=== PATIENT | male | born 2000 | race Two or more races ===

== ENCOUNTER 2024-12-14 15:33 | Emergency (ER) | payer MEDICAID, SELFPAY ==
[2024-12-14 15:34] VITALS: BMI 34.4
--- NOTE | 2024-12-14 15:57 | EKG_ITS ---
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
--- NOTE | 2024-12-14 16:06 | PD.EDRME ---
Rapid Medical Screening Exam RME Arrival date/time: 12/14/24 15:33 24-year-old male with no known medical history presents to the emergency room with a chief complaint of dizziness and lightheadedness that occurred 2 hours ago. I have greeted and performed a focused initial assessment of this patient. A comprehensive ED assessment and evaluation of the patient, analysis of all test results, and completion of the medical decision making process will be conducted by additional ED providers. Chief Complaint: Dizziness Time Seen by Provider: 12/14/24 16:00 Vital signs reviewed by provider: Yes
[2024-12-14 16:12] VITALS: BP 142/85; PULSE 68; RESP 16; TEMP 36.9; O2SAT 99
[2024-12-14 16:33] LABS: Basophils # (Auto) 0.1 Thou/mm3 (0.0-0.2); Basophils % (Auto) 0 % (0-2.5); Eosinophils # (Auto) 0.0 Thou/mm3 (0.0-0.5); Eosinophils % (Auto) 0 % (0-10); Hematocrit 45.3 % (41.0-53.0); Hemoglobin 13.9 g/dL (13.5-16.0); Immature Granulocytes Auto 0.07 Thou/mm3 (0.00-0.00); Lymphocytes # (Auto) 1.7 Thou/mm3 (1.0-4.8); Lymphocytes % (Auto) 8 % (10-50); Mean Corpuscular HGB Conc 30.7 g/dl (31.0-37.0); Mean Corpuscular Hemoglobin 25.6 pg (25.0-35.0); Mean Corpuscular Volume 83 fL (80-100); Monocytes # (Auto) 0.6 Thou/mm3 (0.0-0.8); Monocytes % (Auto) 3 % (0-12); Neutrophils # (Auto) 18.0 Thou/mm3 (1.8-7.7); Neutrophils % (Auto) 88 % (37-80); Nucleated Red Blood Cell # 0.00 Thou/mm3 (0.00-0.00); Nucleated Red Blood Cell % 0 /100 WBC (0); Platelet Count 352 Thou/mm3 (140-440); RDW Standard Deviation 41.6 fL (35.1-43.9); Red Blood Count 5.43 Miln/mm3 (4.50-5.90); White Blood Count 20.5 Thou/mm3 (3.8-10.6)
[2024-12-14 16:38] LABS: INR 1.0 (0.9-1.3); Partial Thromboplastin Time 27.6 Seconds (22.0-36.0); Prothrombin Time 11.1 Seconds (9.0-12.2)
[2024-12-14 16:48] LABS: B-Type Natriuretic Peptide < 20 pg/mL (0-100)
[2024-12-14 16:51] LABS: Alanine Aminotransferase 30 U/L (10-49); Albumin, Serum 5.2 gm/dL (3.5-5.0); Albumin/Globulin Ratio 1.8 (1.2-2.2); Alkaline Phosphatase 93 U/L (46-116); Anion Gap 15 (7-16); Aspartate Amino Transferase 20 U/L (0-34); BUN/Creatinine Ratio 8 Ratio (12-20); Bilirubin,Total 0.6 mg/dL (0.3-1.2); Blood Urea Nitrogen 6 mg/dL (9-23); Calcium 9.5 mg/dL (8.3-10.6); Calcium (Corrected) 9.5 mg/dL (8.5-10.1); Carbon Dioxide 24.3 mMol/L (20.0-31.0); Chloride 103 mMol/L (98-107); Creatinine (Component) 0.8 mg/dL (0.6-1.3); Estimated Creatinine Clearance 161.6 mL/min (>60); Globulin 2.9 gm/dL (2.3-3.5); Glucose 99 mg/dL (74-106); Magnesium 1.9 mg/dL (1.6-2.6); Osmolality,Calculated 280 (275-295); Potassium 3.5 mMol/L (3.4-5.1); Sodium 142 mMol/L (136-145); Total Protein 8.1 gm/dL (5.7-8.2); Troponin I < 0.002 ng/mL (0.0-0.045); eGFR > 60 See Note
[2024-12-14 16:57] LABS: Collection Type, Urine Clean Catch
[2024-12-14 17:08] LABS: Amphetamine/Methamp Scrn,U Negative (Negative); Bacteria,Urine Rare; Barbiturate Screen,Urine Negative (Negative); Benzodiazepines Screen,Urine Negative (Negative); Benzoylecgonine Screen, Ur Negative (Negative); Bilirubin,Urine Negative (Negative); Blood,Urine Negative (Negative); Clarity,Urine Clear (Clear/Hazy); Color,Urine Yellow (Lt Yel-Yel); Culture Indicated,Urine Not Indicated; Fentanyl Screen,Urine Negative (Negative); Glucose, Urine Negative (Negative); Ketones,Urine Negative (Negative); Leukocyte Esterase,Urine Negative (Negative); Nitrite,Urine Negative (Negative); Opiate Screen,Urine Negative (Negative); PH,Urine 7.5 (5.0-7.0); Protein,Urine 1+ (Neg - Trace); RBC,Urine 2 /hpf (0-3); Specific Gravity,Urine 1.030 (1.001-1.035); Squamous Epithelial Cell,Urine < 1 /hpf (0-5); THC Screen,Urine Negative (Negative); Urobilinogen,Urine 2.0 mg/dL (0.0-1.0); WBC,Urine 5 /hpf (0-5)
[2024-12-14] MEDS: MECLIZINE HCL 25 MG TABLET 50 MG PO (17:37)
--- NOTE | 2024-12-14 21:32 | PD.EDCHEST ---
ED Chest Pain RME/HPI General Chief Complaint: Dizziness Stated Complaint: DIZZINESS AND NAUSEA Time Seen by Provider: 12/14/24 16:00 Arrival date/time: 12/14/24 15:33 Limitations: no limitations RME / HPI RME / HPI narrative: 12/14/24 15:33 24-year-old male with no known medical history presents to the emergency room with a chief complaint of dizziness and lightheadedness that occurred 2 hours ago. I have greeted and performed a focused initial assessment of this patient. A comprehensive ED assessment and evaluation of the patient, analysis of all test results, and completion of the medical decision making process will be conducted by additional ED providers. Dr. Mcleod evaluation Patient is a 24-year-old male is in the emergency department concerns for chest pain and feeling lightheaded. Patient states that he recently returned from [place]. He works as a teacher. On Friday he felt nauseous then felt better on Friday and Friday. Then today had 1 episode of emesis that resolved on its own. Denies fevers, cough, runny nose, abdominal pain, dysuria, hematuria, melena, bloody stools, drugs, alcohol, smoking, penile discharge, history of sexually transmitted infections Related Data Previous Rx's ?Medication ?Instructions ?Recorded ondansetron 4 mg disintegrating 4 mg PO Q12H PRN nausea and 12/14/24 tablet vomiting 3 days #6 tabs Allergies Allergy/AdvReac Type Severity Reaction Status Date / Time No Known Allergies Allergy Verified 12/14/24 15:38 ED Exam General Limitations: Present no limitations General appearance: Present alert, in no apparent distress and appears intoxicated Head Head exam: Present atraumatic and normocephalic Eye Eye exam: Present normal appearance and PERRL ENT ENT exam: Present normal exam, normal oropharynx and mucous membranes moist Neck Neck exam: Present normal inspection, full ROM and trachea midline Chest Chest inspection: Present normal inspection and symmetric chest wall rise Respiratory Respiratory exam: Present normal lung sounds bilaterally; Absent respiratory distress Cardiovascular Cardiovascular exam: Present regular rate and normal rhythm Abdominal Exam Abdominal exam: Present soft; Absent distention or tenderness Extremities Exam Extremities exam: Present normal inspection and full ROM Neurological Exam Neurological exam: Present alert and other (No focal neurodeficit) Psychiatric Psychiatric exam: Present normal affect Course Quality Measures none Orders Category Date Time Status EKG (ED ONLY) *Do not use* NOW Care 12/14/24 15:57 Completed Encourage Fluid Intake NOW Care 12/14/24 21:41 Completed EKG (ED Only) Stat Exams 12/14/24 15:57 Draft B-Type Natriuretic Peptide Stat Lab 12/14/24 16:18 Completed CBC Stat Lab 12/14/24 16:18 Completed Comprehensive Metabolic Panel Stat Lab 12/14/24 16:18 Completed Drug Screen,Urine Stat Lab 12/14/24 16:31 Completed Magnesium Stat Lab 12/14/24 16:18 Completed Partial Thromboplastin Time Stat Lab 12/14/24 16:18 Completed Prothrombin Time with INR Stat Lab 12/14/24 16:18 Completed Troponin I Stat Lab 12/14/24 16:18 Completed Urinalysis, C/S if Indicated Stat Lab 12/14/24 16:31 Completed Meclizine HCl [Antivert] Med 12/14/24 17:09 Discontinued 50 mg PO X1 ONE Metoclopramide [Reglan] Med 12/14/24 21:41 Discontinued 5 mg PO X1 ONE Vital Signs Vital signs: Vital Signs Temperature 98.5 F 12/14/24 16:12 Pulse Rate 68 12/14/24 16:12 Respiratory Rate 16 12/14/24 16:12 Blood Pressure 142/85 H 12/14/24 16:12 Pulse Oximetry (%) 99 12/14/24 16:12 Oxygen Delivery Method Room Air 12/14/24 16:12 Chest Pain MDM Narrative MDM Narrative:: Patient is a 24-year-old male this in the emergency permit concerns for chest pain and feeling lightheaded. Vital signs and exam as listed. Concern for ACS arrhythmia electrolyte abnormality viral syndrome among others. Prior provider evaluated patient. Ordered labs EKG offered medication for symptom relief Labs with evidence of leukocytosis 20.5, left shift of 88%. Normal hematocrit, no acute metabolic derangements, drug screen negative, urinalysis without evidence of infection troponin not elevated. EKG performed today at 1613 notable for sinus rhythm, normal intervals, nonspecific T wave changes, not a cardiac alert. Patient not septic not bacteremic, symptoms almost completely resolved. Abdomen soft nondistended nontender, no lower extremity MIYA, no rashes, no evidence of respiratory distress, patient without photophobia no nuchal rigidity, less likely meningitis encephalitis. On reevaluation patient hemodynamically stable not in distress tolerating oral intake. Offered patient IV fluids however patient declined at this time. Will discharge home close return precautions follow-up with primary care doctor. Patient data External records reviewed:: None Clinical information provided by:: patient and family Social determinants that could affect healthcare access:: none Patient has the following chronic illnesses:: None How is presenting disease/condition affected by chronic disease/condition?: no chronic disease Evaluation data The following diagnostics were reviewed and interpreted by me:: lab results and EKG tracing(s) Lab and/or radiology exams considered but not ordered:: None Interpretation Summary: See [facility] Medications / Prescriptions Medications or Prescriptions considered but not ordered:: None Medication administrations:: Medication Administration History Discontinued Medications Meclizine HCl (Meclizine Hcl 25 Mg Tablet) 50 mg PO X1 ONE Stop: 12/14/24 17:10 Last Admin: 12/14/24 17:37 Dose: 50 mg Documented By: ALBERTO Metoclopramide HCl (Metoclopramide 5 Mg Tablet) 5 mg PO X1 ONE Stop: 12/14/24 21:42 Last Admin: 12/14/24 21:51 Dose: 5 mg Documented By: SM See above Consultations Consultation(s) initiated? (list below): No Diagnosis Chest Pain Differential Diagnosis: other Most likely diagnosis given after review of the tests above:: Dehydration, enteritis, vomiting Admission Indicated Admission indicated?: not indicated Admission Request Was there a request for admission?: No Disposition Plan Disposition Plan: Discharge Discharge Attestation Discharge Attestation: The patient and all family members were given an opportunity to ask questions and understood the discharge instructions. Discharge instructions specifically effects, indications for sooner follow up or return to the emergency department, and the expected course of current diagnosis. Patient condition: Stable Discharge Plan Plan Patient Disposition: HOME (Self Care) Prescriptions/Referrals Prescriptions/Med Rec: New ondansetron 4 mg tablet,disintegrating 4 mg PO Q12H PRN (Reason: nausea and vomiting) 3 Days Qty: 6 0RF Referrals: No Primary/Family,Physician [Primary Care Provider] - In 1 week Problem List Clinical Impression: Nausea & vomiting, Light-headed Patient/Caregiver Discharge Instructions Education Materials: ED Diet for Vomiting or ... Print Language: Persian Stand Alone Forms: [employer] Award Info., Work/School Release, Patient Portal Info Letter
[2024-12-14] MEDS: METOCLOPRAMIDE 5 MG TABLET PO (21:51)
== END 2024-12-14 21:56 | disposition home or self-care (01) ==
PROVIDERS: Nurse Practitioner Family; Emergency Provider Emergency Medicine
DX: R11.2 Nausea with vomiting, unspecified (principal); R42 Dizziness and giddiness
CPT/HCPCS: 36415; 80053; 80307; 81001; 83735; 83880; 84484; 85025; 85610; 85730; 93005; 99282; A9270